=== PATIENT | female | born 1960 | race Caucasian/White ===

== ENCOUNTER 2024-04-15 14:36 | Outpatient (CLI) | payer OTHER | END 2024-04-15 14:37 | disposition home or self-care (01) | LOC: CSHMAMMO 14:36 | PROVIDERS: ATTEND Student in an Organized Health Care Education/Training Program | DX: Z12.31 Encounter for screening mammogram for malignant neoplasm of breast (principal) | CPT/HCPCS: 77063; 77067 ==